=== PATIENT | female | born 1940 | race Caucasian/White ===

== ENCOUNTER 2023-11-07 21:28 | Inpatient (IN) | payer MEDICARE, OTHER, SELFPAY ==
[2023-11-07] VITALS (7 sets, daily range): BP systolic 129–177; BP diastolic 58–77; BMI 35.6
[2023-11-07 15:23] LABS: % Basophils 0.6 % (0-2); % Eosinophils 2.2 % (0-6); % Immature Granulocytes 0.3 % (0-0.5); % Lymphocytes 11.3 % (20.5-51.1); % Monocytes 6.3 % (1.7-9.3); % Neutrophils 79.3 % (42.2-75.2); Absolute Basophils 0.1 10^3/uL (0-0.2); Absolute Eosinophils 0.2 10^3/uL (0-0.7); Absolute Lymphocytes 1.1 10^3/uL (1.2-3.4); Absolute Monocytes 0.6 10^3/uL (0.1-0.6); Absolute Neutrophils 7.5 10^3/uL (1.4-6.5); Hematocrit 30.9 % (37.0-47.0); Hemoglobin 9.8 g/dL (12.0-16.0); Mean Corp Hgb Conc. 31.7 g/dL (33.0-37.0); Mean Corpuscular Hgb 30.7 pg (27.0-31.0); Mean Corpuscular Volume 96.9 fL (81.0-99.0); Nucleated Red Blood Cells % 0 %; Red Blood Cell Count 3.19 10^6/uL (4.20-5.40); Red Cell Dist. Width 14.7 % (11.5-14.5); White Blood Cell Count 9.5 10^3/uL (4.8-10.8)
[2023-11-07 15:40] LABS: ALT (SGPT) 18 U/L (0-35); AST (SGOT) 24 U/L (14-36); Albumin 3.8 g/dl (3.5-5.0); Alkaline Phosphatase 81 U/L (38-126); Blood Urea Nitrogen 39 mg/dl (7-17); Calcium 10.7 mg/dl (8.4-10.2); Carbon Dioxide 23 mmol/L (22-30); Chloride 107 mmol/L (98-107); Estimated Creatinine Clearance 41 ml/min; Glucose 141 mg/dl (70-99); Potassium 4.1 mmol/L (3.5-5.1); Sodium 141 mmol/L (135-145); eGFR 44.91
[2023-11-07 15:49] LABS: Total Bilirubin 0.8 mg/dl (0.2-1.3); Total Protein 6.5 g/dl (6.3-8.2)
[2023-11-07 16:04] LABS: Platelet Count 31 10^3/uL (130-400)
--- NOTE | 2023-11-07 19:33 | ED.GENMED ---
Addendum entered and electronically signed by Tracie Abebe MD 11/07/23 20:30:
I initially ordered heparin, however, I quickly canceled it after the patient's platelet count came back at 31. I talked to the patient and she reports she is a history of chronic thrombocytopenia.
Original Note:
History of Present Illness
General
Chief Complaint: Breathing Problem
Source: patient and family (Daughter)
Exam Limitations: none
Time Seen by Provider: 11/07/23 18:22
Nursing documentation reviewed up to this point in time: agreed with
Travel History
Have you had any contact with someone who has COVID-19?: No
Do you have any symptoms of coronavirus? Fever > 100 degrees, chills, cough, shortness of breath, sore throat, loss of taste or smell, muscle aches, or headache?: No
History of Present Illness
History of Present Illness:
The patient is a pleasant 83-year-old female who reports that she has been short of breath for several months and it has lately become severe with exertion. Patient reports she has a aortic valve replacement that was done over 10 years ago and is
concerned she may need a new aortic valve. She denies chest pain and palpitations. She denies increased leg pain and leg swelling. She is particularly concerned about how short of breath she has with simple activity. Patient's EKG on arrival
shows A-fib. Patient reports she is never had a history of this before
Past History
Past History
ED Past Medical History: HTN and Hypercholesterolemia
ED Past Surgical History: Cardiac (Aortic valve replacement)
Social History
Tobacco: Former smoker
Alcohol: None
Drug: None
Personal:
Living: alone
Employment: Retired
Family History
Family History: Other
Review of Systems
Review of Systems
Allergies reviewed?: Yes
All Other Systems: ROS reviewed and negative except as documented in HPI and ROS
Constitutional: Reports no symptoms
EENT: Reports no symptoms
Respiratory: Reports trouble breathing
Cardiac: Reports no symptoms
ABD/GI: Reports no symptoms
: Reports no symptoms
Musculoskeletal: Reports no symptoms
Skin: Reports no symptoms
Neurological: Reports no symptoms
Endocrine: Reports no symptoms
Hematologic/Lymphatic: Reports no symptoms
Psychiatric: Reports no symptoms
Phy Exam
Physical Exam
Physical Exam:
Physical Exam
General: no apparent distress, not acutely ill
Neck: supple. no meningeal signs. normal psoterior pharynx
Heart: s1/s2 regular rate and rhythm, no murmur. equal radial pulses.
Lungs: no acute respiratory distress. clear bilaterally
Abdomen: normal bowel sounds. not tender. no CVAT
Neuro: alert and oriented. no focal neurological deficits
Skin: no rash
Psychiatric: well kept. interactive and cooperative
Extremities: no edema. no calf tenderness. negative homans. good distal pulses
Scores
Heart Failure Risk
Heart Failure Risk Score: Not Applicable
Course
Orders/Labs/Results
Orders:
Orders
11/07/23 15:11
Electrocardiogram (*1) Urgent
Reason for Study: Chest Pain
EKG- Treatment ONCE
11/07/23 15:15
Complete Blood Count/With Diff Urgent
Comprehensive Metabolic Panel Urgent
11/07/23 19:52
Heparin 4,000 units IV NOW STA
Pharmacy Request to Place See Dose Instructions PO NOW STA
Discontinue all Active Warfarin orders?: Yes
Nursing to Place Non Medication Order As Directed
Physician Order: PTT 6 hours after initial start of Heparin infusion
11/07/23 20:00
Heparin 63240 Units/250 ml 25,000 units in 250 ml IV PER PROTOCOL
Weight to be used for heparin protocol in kilograms (kg):: 97.069
Protocol:: Cardiac Tx/Acute Coronary
PTT Goal Range to be used:: PTT 73 to 111 seconds
Order type:: Initial
INITIAL Infusion Dose (UNITS/KG/hr) & then follow protocol:: 12 units/kg/hr
Infusion Dose in UNITS/hr & then follow protocol (UNITS/hr):: 1,000
INFUSION RATE in mL/hr & then follow protocol (mL/hr):: 10
PTT less than or equal to 64 seconds:: Increase rate by 200 units/hr (+ 2 mL/hr)
PTT 64.1 to 72.9 seconds:: Increase rate by 100 units/hr (+ 1 mL/hr)
PTT 73 to 111 seconds:: Target Range. No change in rate.
PTT 111.1 to 130.9 seconds:: Decrease rate by 100 units/hr (- 1 mL/hr)
PTT 131 to 199.9 seconds:: HOLD for 1 hr. Then decrease rate by 200 units/hr (- 2 mL/hr)
PTT greater than or equal to 200 seconds:: HOLD for 2 hrs & Notify Provider. Then decrease by 200 units/hr (-
2 mL/hr)
Lab follow-up:: Each change, PTT q6h until 2 consecutive are therapeutic. Then PTT
daily.
Pharmacy Request to Place See Dose Instructions IV DIRECTED
11/07/23 20:04
NT-proBNP Urgent
PTT Urgent
Prothrombin Time Urgent
Troponin I Urgent
Abnormal Lab Results
11/07/23
15:15
RBC 3.19 L 10^6/uL
(4.20-5.40)
Hgb 9.8 L g/dL
(12.0-16.0)
Hct 30.9 L %
(37.0-47.0)
MCHC 31.7 L g/dL
(33.0-37.0)
RDW 14.7 H %
(11.5-14.5)
Plt Count 31 L 10^3/uL
(130-400)
Absolute Neuts (auto) 7.5 H 10^3/uL
(1.4-6.5)
Absolute Lymphs (auto) 1.1 L 10^3/uL
(1.2-3.4)
Neutrophils % 79.3 H %
(42.2-75.2)
Lymphocytes % 11.3 L %
(20.5-51.1)
BUN 39 H mg/dl
(7-17)
Creatinine 1.2 H mg/dL
(0.6-1.0)
Glucose 141 H mg/dl
(70-99)
Calcium 10.7 H mg/dl
(8.4-10.2)
11/07/23 15:15
11/07/23 15:15
Vital Signs
Initial and Last Documented VS:
Initial Vital Signs
Temp Pulse Resp BP Pulse Ox
98 F 95 16 167/70 98
11/07/23 15:03 11/07/23 15:03 11/07/23 15:03 11/07/23 15:03 11/07/23 15:03
Last Documented Vital Signs
Temp Pulse Resp BP Pulse Ox
98 F 97 23 167/73 95
11/07/23 15:03 11/07/23 20:01 11/07/23 20:01 11/07/23 20:01 11/07/23 20:01
MDM/Problems Addressed
Differential Diagnosis Includes:
A-fib with rapid ventricular rate, A-fib with CHF, pneumonia
MDM/Problems Addressed:
Patient presents with subacute shortness of breath and new onset A-fib
Chronic conditions affecting care: HTN
Acute Exacerbation and/or Progression of Chronic Illness: HTN
*Pulse Oximetry
Patient hypoxic: no
*EKG
Interpreted by ED Provider?: Yes
Interpretation: abnormal
Comparison EKG: no comparison EKG present
Rate: normal
Rhythm: a-fib
Bledsoe: normal axis
Interval: normal interval
QRS Pattern: normal QRS
Ischemia: non-specific ST changes
*Stripe Marker Interpretation
Rate: normal
Interpretation: abnormal
Rhythm: a-fib
*Critical Care Note
Total Time (30-74mins, 75-104mins- exclusive of procedures): Not Applicable
Data Reviewed
Source: patient and family
Patient Management
Discussion with other providers: Hospitalist
Escalation/DeEscalation of care consider admission/obs:
Given patient's shortness of breath on exertion, decision made to admit the patient for anticoagulation possible cardioversion. Awaiting proBNP.
ED Attending Note
-
Portions of this chart may have been created with voice recognition software.� Occasional wrong word or��sound alike� substitutions may have occurred due to the inherent limitations of voice recognition software.
Discharge Plan
Departure
Patient Disposition: Admit
Date of Disposition: 11/07/23
Time of Disposition: 19:31
Admit to: Telemetry
Presentation/result/management discussed w/ accepting MD/DO: Hospitalist
Patient with high blood pressure during this ER visit?: Yes
Condition: Fair
Covid-19: Not Applicable
Discharge Problem:
New onset a-fib, Acute dyspnea
Prescriptions:
No Action
multivitamin Tablet
1 tab PO DAILY
losartan 50 mg tablet
50 mg PO BID
carvedilol 25 mg tablet
25 mg PO BID
simvastatin 10 mg tablet
10 mg PO QPM
aspirin 81 mg Tablet,Delayed Release (Dr/Ec)
81 mg PO Q48H
hydralazine 50 mg tablet
50 mg PO BID
glucosamine-chondroitin [Osteo Bi-Flex] 250-200 mg Tablet
1 tab PO BID
Referrals:
Ira Amaya DO [Family Provider] -
Interventions
Interventions:
*Risk Screen - Suicide Last Done: 11/07/23 15:06
*Neglect/Abuse Screening Last Done: 11/07/23 15:06
*ED COVID-19 Vaccine History Last Done: 11/07/23 15:06
--- NOTE | 2023-11-07 19:53 | HPS.HSE ---
Addendum entered and electronically signed by Starr Garg MD 11/07/23 20:53:
I saw and examined the patient.
The DISH ROOM WORKER's note was reviewed and I agree with the note.
Comment:
Ms. Cyndie Kaplan is a 83 yo woman with hx AVR 2012, iron deficiency anemia who presents to the ER with progressive shortness of breath since Spring 2022. Patient was worried she needs a valve repair. Denies chest pain. Triage VS significant
for hypertension. On exam she is conversant, in no acute distress. CV: S1, S2, irregular rhythm, no murmurs; lungs clear, abdomen benign, 1+ b/l pitting edema. Labs with creatinine 1.2, Na 141, K+ 4.1, WBC 9.5, PLT 31. EKG with rate-controlled
afib in the .
Patient will be admitted for further work-up and treatment of afib and shortness of breath. Will obtain chest x-ray, TTE, TSH, cardiology consult. continue MAGNETIC LOCATER Coreg. Avoid AC given thrombocytopenia.
Regarding thrombocytopenia, patient states she has a history of this but no work-up. Unclear if this is lower than baseline. Hold MAGNETIC LOCATER aspirin given PLT < 50. Will F/U TSH, HCV testing. Heme consult.
Original Note:
Family Physician
-
Family Physician: Ira Amaya
Chief Complaint
-
Shortness of breath, dyspnea on exertion
History of Present Illness
83-year-old female complaining of shortness of breath with dyspnea on exertion since December 2022. She had initial AVR in 2012 at [facility]. She was due to have a 2D echo in June 2023 but put it off due to her grandchild being born
that day. She has had progressive shortness of breath with CORRAL and is now unable to walk approximately 7 feet at home without getting winded. She denies chest pain, palpitations, cough, abdominal pain, nausea, vomiting, diarrhea, black or bloody
stools, urinary symptoms. She reports a history of thrombocytopenia with platelets of 33-40 but unclear of any etiology. She takes an aspirin 81 mg every other day she states for cardiac protecting although has no history of cardiac disease or
stents. She also has past medical history of iron deficiency anemia which she takes iron tabs twice daily.
She was noted to be in new onset A-fib in the ER along with anemia and thrombocytopenic. She has past medical history of right-sided breast cancer, chronic thrombocytopenia, iron deficiency anemia, HTN, HLD, AVR 2012
Medical History
Past Medical History
Past Medical History: Reports Other
Additional Past Medical History:
right-sided breast cancer
chronic thrombocytopenia
iron deficiency anemia
HTN
HLD
AVR 2012
Obesity
Past Surgical History: Reports Other
Additional Past Surgical History:
Right-sided breast cancer
Bilateral knee replacement
Valve replacement
Social History
Tobacco: Non-smoker
Alcohol: None
Drug: None
Personal:
Living: Alone ([facility])
Employment: Retired
Family History
Family History: Not pertinent
Allergies / Home Medications
Allergies reflects when Allergies were last updated in [facility].
Home Medications with original date entered in [facility]
Allergy/Medication List:
Allergies
Allergy/AdvReac Type Severity Reaction Status Date / Time
nut - unspecified Allergy Nausea Verified 11/07/23 15:05
Home Medications
aspirin 81 mg tablet,delayed release 81 mg PO Q48H 11/07/23
carvedilol 25 mg tablet 25 mg PO BID 11/07/23
glucosamine-chondroitin 250 mg-200 mg tablet (Osteo Bi-Flex) 1 tab PO BID 11/07/23
hydralazine 50 mg tablet 50 mg PO BID 11/07/23
losartan 50 mg tablet 50 mg PO BID 11/07/23
multivitamin 1 tab PO DAILY 11/07/23
simvastatin 10 mg tablet 10 mg PO QPM 11/07/23
Review of Systems
-
History Source: Patient and Family (Daughter at bedside)
A 12 point ROS was completed and negative except as noted: Yes
Constitutional: Denies Fever or Chills
EENT: Denies Sore Throat or Runny Nose
Respiratory: Reports Trouble Breathing (CORRAL); Denies Cough or Hemoptysis
Cardiac: Denies Chest Pain, Diaphoresis, Palpitations or Syncope
Abdomen/GI: Denies Abdominal Pain, Nausea, Vomiting, Diarrhea, Constipated, Bloody Stools or Black Stools
: Denies Dysuria, Frequency, Flank Pain, Incontinence, Difficulty Voiding, Urgency or Bleeding
Musculoskeletal: Reports Edema (+1 bilateral ankles); Denies Joint Pain
Skin: Denies Itching or Rash
Neurological: Reports Weakness (Generalized); Denies Dizzy or Headache
Endocrine: Reports No Symptoms
Hematologic/Lymphatic: Reports No Symptoms
Psych: Reports Calm
Physical Exam
Vital Signs
Vital Signs
Temp Pulse Resp BP Pulse Ox
98 F 95 16 167/70 98
11/07/23 15:03 11/07/23 15:03 11/07/23 15:03 11/07/23 15:03 11/07/23 15:03
Physical Exam
General: Comfortable and Conversant; No Pain, Fever or Chills
HEENT: NormoCephalic, Anicteric, Moist mucous membranes, PERRLA, [place] Conjunctivae and No Ptosis
Respiratory: Clear; No Wheezes, Rales or Rhonchi
Cardiac: S1/S2, Irregular Rhythm (A-fib) and Peripheral Edema (+1 bilateral ankles); No Murmur, Rub, Gallop or JVD
Breast: Deferred by me
GI: Soft, Non Tender, Non Distended, Normal Bowel Sounds and No Hepatosplenomegaly
Rectal: Deferred by Provider
Genito-urinary: Deferred by me
Musculoskeletal: No Clubbing, No Cyanosis, Edema, Left Lower Extremity (+1 to ankles) and Edema, Right Lower Extremity (+1 to ankles); No Edema, Left Upper Extremity or Edema, Right Upper Extremity
Skin: Warm and Dry; No Rash or Jaundice
Neuro: AO x 3, No Motor Deficits, Nonfocal/grossly intact, Cranial Nerves Intact and No Sensory Deficits; No Slurred Speech, Facial Droop or Tremors
Psych: Calm
Laboratory Results
-
11/07/23 15:15
11/07/23 15:15
Laboratory Results
Total Bilirubin 0.8 mg/dl (0.2-1.3) 11/07/23 15:15
AST 24 U/L (14-36) 11/07/23 15:15
ALT 18 U/L (0-35) 11/07/23 15:15
Alkaline Phosphatase 81 U/L (38-126) 11/07/23 15:15
Impression/Plan
-
Impression/plan:
Admit to telemetry
#New onset A-fib
-Rate currently controlled 96 bpm
-Continue carvedilol 25 mg twice daily
-Consult [facility] cardiology
-Obtain records from [facility]
-Check 2D echo
- tsh with free t4 reflex
EKG: A-fib 96 bpm, QTc 429 MS
#AVR 2012
-Follows with [facility] at [facility] last appointment was June
#Anemia�normocytic
#Iron deficiency anemia
Hgb 9.8, MCV 96.9
-Continue oral iron 65 mg twice daily
#Acute on chronic thrombocytopenia-unclear etiology
PLT 31
-Hold aspirin 81 mg
-check hcv
-Consult hematology
? CKD
Creat 1.2 follow bmp
#Hypercalcemia�mild
Calcium 10.7> 10.9 corrected
#Mild hyperglycemia
BS 141 check HgbA1c
HTN-benign-
Continue carvedilol 25 mg twice daily, losartan 50 mg twice daily, , hydralazine 50 mg twice daily
#HLD
Continue simvastatin 10 mg every afternoon
Check lipid profile
#Right-sided breast cancer with lumpectomy
#Kyphosis
#Chronic ambulatory dysfunction
Uses walker at baseline
#Obesity due to excess calorie consumption�BMI 35.6 kg
Low-fat diet, weight loss recommended
Full code
[2023-11-07 20:22] LABS: APTT 30.4 Sec (23.4-35.0)
[2023-11-07 20:34] LABS: NT-proBNP 4890 pg/ml; Troponin I < 0.012 ng/ml
[2023-11-07 21:03] LABS: Iron 45 ug/dl (37-170)
[2023-11-07 21:12] LABS: Percent Saturation 16 % (20-50); Total Iron Binding Capacity 278 ug/dl (265-497)
[2023-11-07 22:10] LABS: Folate > 20.0 ng/ml (2.76-20); Vitamin B12 843 pg/ml (239-931)
[2023-11-08] VITALS (9 sets, daily range): BP systolic 122–156; BP diastolic 68–91; O2SAT 95; BMI 33.9
[2023-11-08] MEDS: LIPITOR 10 MG PO ×2 (00:43→18:22)
--- NOTE | 2023-11-08 02:32 | PTCARENOTE ---
Received patient from ER, AAOx4. Patient ambulated from stretcher to her bed with walker. No c/o pain at this time. A fib on tele monitor. Oriented to unit, call davis in reach, plan of care continues.
[2023-11-08] MEDS: TYLENOL 650 MG PO ×2 (04:15→21:56)
[2023-11-08 07:54] LABS: Glucose - Point of Care 103 mg/dl (70-99)
--- NOTE | 2023-11-08 08:28 | CON.ONC ---
Impression
Impression
New onset A-fib
AVR 2012
Normocytic anemia with history of iron deficiency anemia
Chronic thrombocytopenia of unclear etiology
Right-sided breast cancer s/p lumpectomy 2009 - [facility]
Obesity
Plan
Plan
Patient has anemia and thrombocytopenia and could have an underlying bone marrow disorder.
History of iron deficiency anemia is in the records but despite anemia, patient does not appear to be currently iron deficient based on iron studies.
Additional workup including a bone marrow aspirate and biopsy to rule out underlying bone marrow dysfunction is indicated.
Patient also requires a bone marrow biopsy for further evaluation of thrombocytopenia.
As inpatient bone marrow biopsy is or not typically done, I will set her up for follow-up with Dr. Marie or one of my other partners for further outpatient evaluation.
Will schedule outpatient follow-up.
Regarding dyspnea, this is likely related to new onset atrial fibrillation and patient is currently getting an echocardiogram and will be seen by cardiology.
Patient History
History of Present Illness
Hematology consult: Chronic thrombocytopenia from Dr. Starr Garg
CC: Shortness of breath, dyspnea on exertion
HPI: 83-year-old female presented to the ER with worsening chronic shortness of breath and dyspnea on exertion since December 2022. Patient has history of valvular heart disease and underwent aortic valve replacement and a follow-up echocardiogram was
scheduled but patient never had it done because it was scheduled on the day her grandchild was born. We are consulted to see her for thrombocytopenia. Reviewing our outpatient chart, she saw Dr. Shan Marie in 2013 for thrombocytopenia with
platelet count of 60,000. Currently platelet count runs around 30-40,000 without any clear-cut etiology. A bone marrow biopsy was being considered in 2013 but patient never scheduled follow-up. Patient denies bleeding. She does take low-dose
aspirin 81 mg every other day.
In the ER, she was found to be in new onset A-fib hematology is consulted for anemia and thrombocytopenia.
Past-Medical/Surgical History
PMH:
right-sided breast cancer, chronic thrombocytopenia, iron deficiency anemia, HTN, HLD, AVR 2012, Obesity
PSH:
s/p [facility]R [facility] �02/2013
s/p right lumpectomy �2009
s/p bilateral knee replacements
s/p eye surgery cataract
SH:
Tobacco: Non-smoker
Alcohol: None
Drug: None
Personal:
Living: Alone ([facility])
Employment: Retired
FH: The patient denies a family history of hematologic disorders or hematologic malignancies.
Patient Medication
Medication Instructions Recorded Confirmed Last Taken Type
aspirin 81 mg tablet,delayed 81 mg PO Q48H 11/07/23 11/07/23 11/07/23 History
release
carvedilol 25 mg tablet 25 mg PO BID 11/07/23 11/07/23 11/07/23 History
ferrous sulfate 65 mg PO BID 11/07/23 11/07/23 Unknown History
glucosamine-chondroitin 250 mg-200 1 tab PO BID 11/07/23 11/07/23 11/07/23 History
mg tablet (Osteo Bi-Flex)
hydralazine 50 mg tablet 50 mg PO BID 11/07/23 11/07/23 11/07/23 History
losartan 50 mg tablet 50 mg PO BID 11/07/23 11/07/23 11/07/23 History
multivitamin 1 tab PO DAILY 11/07/23 11/07/23 11/07/23 History
simvastatin 10 mg tablet 10 mg PO QPM 11/07/23 11/07/23 11/06/23 History
Active Medications
Generic Name Dose Route Start Last Admin
Trade Name Freq PRN Reason Stop Dose Admin
Atorvastatin Calcium 10 mg 11/08/23 18:00
Atorvastatin (Lipitor) 10 Mg Tablet PO 12/06/23 17:59
QPM CHRISTIANO
Carvedilol 25 mg 11/08/23 08:00
Carvedilol 25 Mg Tablet PO 12/06/23 07:59
BID CHRISTIANO
Dextrose 12.5 grams 11/07/23 22:21
Dextrose 50% (0.5 Grams/Ml) 50 Ml Syringe IV 12/05/23 22:20
[id number] PRN
hypoglycemia
Protocol
Ferrous Sulfate 325 mg 11/08/23 08:00
Ferrous Sulfate 325 Mg Tablet PO 12/06/23 07:59
BID CHRISTIANO
Glucagon 1 mg 11/07/23 22:21
Glucagon 1 Mg Vial IM 12/05/23 22:20
PRN PRN
hypoglycemia
Protocol
Hydralazine HCl 50 mg 11/08/23 08:00
Hydralazine 50 Mg Tablet PO 12/06/23 07:59
BID CHRISTIANO
Insulin Aspart 0 units 11/08/23 07:30
Insulin Aspart Low Resistance 300 Units/3 Ml Pen.Injctr SC 12/06/23 07:29
AC CHRISTIANO
Protocol
Losartan Potassium 50 mg 11/08/23 08:00
Losartan 50 Mg Tablet PO 12/06/23 07:59
BID CHRISTIANO
Multivitamins Therapeutic 1 tablet 11/08/23 08:00
Multivitamin Tablet PO 12/06/23 07:59
DAILY CHRISTIANO
Sodium Chloride 0 flush 11/07/23 23:00
Sodium Chloride 0.9% (Flush) Syringe IV 12/05/23 22:59
PER PROTOCOL CHRISTIANO
Physical Exam
-
General: No Apparent Distress, Comfortable and Morbidly Obese; Negative Respiratory Distress
Cardiology: Irregular Rate/Rhythm
Pulmonary: Clear
GI: Soft
Labs
Lab Results
WBC 9.5 10^3/uL (4.8-10.8) 11/07/23 15:15
RBC 3.19 10^6/uL (4.20-5.40) L 11/07/23 15:15
Hgb 9.8 g/dL (12.0-16.0) L 11/07/23 15:15
Hct 30.9 % (37.0-47.0) L 11/07/23 15:15
MCV 96.9 fL (81.0-99.0) 11/07/23 15:15
MCH 30.7 pg (27.0-31.0) 11/07/23 15:15
MCHC 31.7 g/dL (33.0-37.0) L 11/07/23 15:15
RDW 14.7 % (11.5-14.5) H 11/07/23 15:15
Plt Count 31 10^3/uL (130-400) L 11/07/23 15:15
MPV Not Reportable 11/07/23 15:15
Abs Immat Gran (auto) 0.0 10^3/uL (0-0.05) 11/07/23 15:15
Absolute Neuts (auto) 7.5 10^3/uL (1.4-6.5) H 11/07/23 15:15
Absolute Lymphs (auto) 1.1 10^3/uL (1.2-3.4) L 11/07/23 15:15
Absolute Monos (auto) 0.6 10^3/uL (0.1-0.6) 11/07/23 15:15
Absolute Eos (auto) 0.2 10^3/uL (0-0.7) 11/07/23 15:15
Absolute Basos (auto) 0.1 10^3/uL (0-0.2) 11/07/23 15:15
Immature Gran % 0.3 % (0-0.5) 11/07/23 15:15
Neutrophils % 79.3 % (42.2-75.2) H 11/07/23 15:15
Lymphocytes % 11.3 % (20.5-51.1) L 11/07/23 15:15
Monocytes % 6.3 % (1.7-9.3) 11/07/23 15:15
Eosinophils % 2.2 % (0-6) 11/07/23 15:15
Basophils % 0.6 % (0-2) 11/07/23 15:15
Creatinine 1.2 mg/dL (0.6-1.0) H 11/07/23 15:15
Vital Signs
Vital Signs
Temp Pulse Resp BP Pulse Ox
98.6 F 96 18 135/91 95
11/08/23 07:00 11/08/23 07:00 11/08/23 07:00 11/08/23 07:00 11/08/23 07:00
--- NOTE | 2023-11-08 08:51 | CON.CAR ---
Addendum entered and electronically signed by Von Soto MD 11/08/23 12:45:
I saw and examined the patient.
The RN APPEALS's note was reviewed and I agree with the note.
Comment: 83 [facility] with hx AVR 2013, hypertension, dyslipidemia, anemia, breast CA hx, thrombocytopenia who is here for evaluation of SOB present for months, but worsened since September. Overall, her shortness
does not have a have a clear etiology.
Will obtain
- TTE for eval of AVR
- AF will need to be rate controlled given the degree of her thrombocytopenia
- HF does not seem to be likely as her CXR is clear and weight from history is stable
- Pending TTE may trial diuretics to see if this improves SOB
we will cont to follow
Original Note:
Consultation
Consultation Request
Date/Time Consultation Requested: 11/07/232031
Date/Time Consultation Performed: 11/08/22 0845
Requesting Provider: Tamar Castro
Performing Provider: Dana MAYES for Dr. Soto
Reason for Consultation: SOB
Medical History
-
Chief Complaint: SOB
History of Present Illness:
83 [facility] with hx AVR 2013, hypertension, dyslipidemia, anemia, breast CA hx, thrombocytopenia who is here for evaluation of SOB present for months, but worsened since September. Her children urged her to be
seen. She is seen to have new diagnosis AFIB. Rate is controlled. She denies any clinical bleeding. Denies edema or known weight gain. Always sits up in chair at night due to kyphosis. Breathing only bad with exertion, fine at rest.
Past Medical History
Past Medical History: Cancer, HTN, Hypercholesterolemia and Other (as above)
Social History
Tobacco: Former Smoker
Personal:
Living: Other (independent living facility)
Family History
Family History: Reviewed & Not Pertinent
Allergies / Home Medications
Allergy/AdvReac Type Severity Reaction Status Date / Time
nut - unspecified Allergy Nausea Verified 11/07/23 15:05
Medication Instructions Recorded Confirmed Type
aspirin 81 mg tablet,delayed 81 mg PO Q48H 11/07/23 11/07/23 History
release
carvedilol 25 mg tablet 25 mg PO BID 11/07/23 11/07/23 History
ferrous sulfate 65 mg PO BID 11/07/23 11/07/23 History
glucosamine-chondroitin 250 mg-200 1 tab PO BID 11/07/23 11/07/23 History
mg tablet (Osteo Bi-Flex)
hydralazine 50 mg tablet 50 mg PO BID 11/07/23 11/07/23 History
losartan 50 mg tablet 50 mg PO BID 11/07/23 11/07/23 History
multivitamin 1 tab PO DAILY 11/07/23 11/07/23 History
simvastatin 10 mg tablet 10 mg PO QPM 11/07/23 11/07/23 History
Review of Systems
-
History Source: Patient
All other systems: Negative unless noted
Respiratory: Trouble Breathing
Physical Exam
Vital Signs
Temp Pulse Resp BP Pulse Ox
98.6 F 96 18 135/91 95
11/08/23 07:00 11/08/23 07:00 11/08/23 07:00 11/08/23 07:00 11/08/23 07:00
Lab Results
Troponin I < 0.012 ng/ml 11/07/23 20:04
Fir-Q-Ztykhxswlea Pept 4890 pg/ml 11/07/23 20:04
Physical Exam
General: Well Developed and No Apparent Distress
HEENT: Normocephalic and Anicteric
Respiratory: Clear and Non Labored Respirations
Cardiac: Irregular Rhythm and Murmur (II/ systolic)
Skin: Warm and Dry
Neuro: AO x 3
Psych: Calm
Impression / Plan
-
SOB:
-CXR limited, not obviously volume overloaded to assessment. Check echo.
-AFIB is new, but rate-controlled
-anemia is noted, unknown baseline
AFIB, new diagnosis- type and onset unknown
-rate-controlled- continue Coreg
-[id number] score is at least 4 for HTN, age, female. However, platelets are 31, and anticoagulation contraindicated at this time.
Thrombocytopenia:
-severe
-heme is consulted
Hx Bio AVR 2013:
-on ASA as OP- held currently
-echo pending
HTN:
-stable
-continue medical therapy
Anemia:
-baseline unknown
-on iron
-follow
Data Reviewed
-
EKG: Tracing Personally Visualized and interpreted (AFIB)
Radiology: Report Reviewed by me (CXR: Limited by patient rotation and slightly diminished degree of inspiration. As far as visualized, no evidence of pneumonia or congestive heart failure.)
Medical Tests (Nuc Med, Echo etc): Other (echo ordered)
Labs: Labs Reviewed by me
Old Records: Requested
[2023-11-08 09:03] LABS: % Basophils 0.6 % (0-2); % Eosinophils 2.8 % (0-6); % Immature Granulocytes 0.4 % (0-0.5); % Lymphocytes 10.1 % (20.5-51.1); % Monocytes 7.2 % (1.7-9.3); % Neutrophils 78.9 % (42.2-75.2); Absolute Basophils 0.1 10^3/uL (0-0.2); Absolute Eosinophils 0.2 10^3/uL (0-0.7); Absolute Lymphocytes 0.9 10^3/uL (1.2-3.4); Absolute Monocytes 0.6 10^3/uL (0.1-0.6); Absolute Neutrophils 6.7 10^3/uL (1.4-6.5); Hematocrit 27.8 % (37.0-47.0); Hemoglobin 8.8 g/dL (12.0-16.0); Mean Corp Hgb Conc. 31.7 g/dL (33.0-37.0); Mean Corpuscular Hgb 31.1 pg (27.0-31.0); Mean Corpuscular Volume 98.2 fL (81.0-99.0); Nucleated Red Blood Cells % 0 %; Red Blood Cell Count 2.83 10^6/uL (4.20-5.40); Red Cell Dist. Width 14.7 % (11.5-14.5); White Blood Cell Count 8.4 10^3/uL (4.8-10.8)
[2023-11-08 09:45] LABS: Blood Urea Nitrogen 31 mg/dl (7-17); Calcium 9.5 mg/dl (8.4-10.2); Carbon Dioxide 22 mmol/L (22-30); Chloride 113 mmol/L (98-107); Estimated Creatinine Clearance 45 ml/min; Glucose 93 mg/dl (70-99); HDL Cholesterol 43 mg/dl; LDL Cholesterol, Calculated 37 mg/dl; Potassium 3.9 mmol/L (3.5-5.1); Sodium 140 mmol/L (135-145); Total Cholesterol 96 mg/dl (50-199); Triglyceride 82 mg/dl (10-149); Very Low Density Lipoprotein 16 mg/dl (0-30); eGFR 49.86
[2023-11-08 09:53] LABS: Platelet Count 29 10^3/uL (130-400)
[2023-11-08 10:00] LABS: TSH Reflex To Free T4 0.04 uIU/ml (0.47-4.68)
[2023-11-08] MEDS: FEOSOL 325 MG PO ×2 (10:09→20:07)
[2023-11-08] MEDS: THERAGRAN 1 TABLET PO (10:09)
[2023-11-08] MEDS: COZAAR 50 MG PO ×2 (10:09→21:24)
--- NOTE | 2023-11-08 10:12 | W.PN.HOSP.TC ---
Addendum entered and electronically signed by Pamela Moore MD 11/08/23 11:04:
d/w Endo Dr Carty. Ok to start methimazole despite low platelet count. Agree with methimazole 5 mg daily.
Original Note:
Today's Communication/Plan
-
see A/P
Assessment / Plan
Assessment / Plan
83 yo woman with hx AVR 2012, iron deficiency anemia, chronic thrombocytopenia, HTN, HLD, who presented to the ER with progressive shortness of breath since Spring 2022.�
She had initial AVR in 2012 at [facility].�Patient was worried she needs a valve repair. Denies chest pain.�
She also reported history of thrombocytopenia with platelets of 33 - 40, unclear etiology.� She takes an aspirin 81 mg every other day.
A/P:
# New onset rate controlled A fib
Continue carvedilol 25 mg twice daily
Consult [facility]
Obtain records from [facility]
Follow 2D echo report
TSH 0.04, follow reflex FT4
# Hyperthyroidism vs subclinical hyperthyroidism , possibly contributing to A fib
TSH 0.04, follow reflex FT4
Would not start methimazole without Endo CS given methimazole can cause thrombocytopenia and pt already with low platelet.
Endo CS
# AVR 2012
Follows with CCP at [place] last appointment was June
# Acute on chronic thrombocytopenia, unclear etiology
Platelet 29 - 30
Hold aspirin 81 mg
Follow HCV testing
Consult hematology
# Anemia�normocytic
# Iron deficiency anemia
Continue oral iron 65 mg twice daily
# HTN
Continue carvedilol 25 mg twice daily, losartan 50 mg twice daily, hydralazine 50 mg twice daily, all with holding parameter
# HLD
Continue statin
LDL 37
# Right-sided breast cancer with lumpectomy
# Kyphosis
# Chronic ambulatory dysfunction
Uses walker at baseline
# Obesity due to excess calorie consumption� BMI 35.6 kg
Low-fat diet, weight loss recommended
Full code
DVT ppx: SCD, Avoid AC given thrombocytopenia.�
Anticipated Discharge: 24 - 48 hours
Subjective/Interval History
-
Date of Service: November 08, 2023
Objective Data
-
Labs:
Laboratory Results
11/08/23
07:38
WBC 8.4
Hgb 8.8 L
Hct 27.8 L
Plt Count 29 L*
Sodium 140
Potassium 3.9
Chloride 113 H
Carbon Dioxide 22
BUN 31 H
Creatinine 1.1 H
Glucose 93
Calcium 9.5
Vital Signs:
Vital Signs
Temp Pulse Resp BP Pulse Ox
37.0 C 96 18 135/91 95
11/08/23 07:00 11/08/23 07:00 11/08/23 07:00 11/08/23 07:00 11/08/23 07:00
Review of Systems
-
All other systems: Reviewed and negative
Physical Exam
-
General: Well Developed, Well Nourished, No Apparent Distress, Comfortable and Conversant; Negative Respiratory Distress
HEENT: Normocephalic, Atraumatic, Nose Appears Normal and Ears Appear Normal; Negative Oxygen
Respiratory: Clear to Auscultation and Non Labored Respirations; Negative Accessory Resp Muscle Use
Cardiac: S1/S2 and Irregular Rhythm
GI: Soft, Nontender, Nondistended and Normal Bowel Sounds
Skin: Warm and Dry
Neuro: Awake, Alert, Oriented and AO x 3
Psych: Calm and Intact Judgement/Insight
Data Reviewed
-
Labs: Labs Reviewed by me
[2023-11-08] MEDS: COREG 25 MG PO ×2 (10:16→20:07)
[2023-11-08] MEDS: APRESOLINE 50 MG PO ×2 (10:26→21:24)
[2023-11-08 10:47] LABS: Free T4 1.82 ng/dl (0.78-2.19)
[2023-11-08 11:04] LABS: Glucose - Point of Care 128 mg/dl (70-99)
[2023-11-08 12:13] LABS: Glycohemoglobin (HgbA1c) 5.4 % (4.0-5.6)
[2023-11-08] MEDS: TAPAZOLE 5 MG PO (13:07)
--- NOTE | 2023-11-08 17:20 | W.PN.UPDATE ---
Update Note
Progress Note Update
Our service ordered lasix earlier today, but patient declined. I explained reasoning for it, echo, and our recommendation for it and that it would likely help with shortness of breath. She told me she was getting 'testy' and that she still declines.
She said she will take it in the AM, as she doesn't want to urinate all night since she didn't sleep last night.
--- NOTE | 2023-11-08 17:21 | CM ---
Alert awake oriented patient who lives alone at independent living at [facility].She has no steps to enter and an elevator to cafe.She is independent in driving and in all activities of daily living.Offered VN she declined.
[facility]
Never had VN/SNF
Pharmacy [facility]
PCP Dr Amaya
PLAN Home declined VN
[2023-11-08 17:26] LABS: Glucose - Point of Care 99 mg/dl (70-99)
[2023-11-08 21:25] LABS: Glucose - Point of Care 98 mg/dl (70-99)
[2023-11-08 21:55] LABS: Hepatitis C Antibody Negative (Negative)
[2023-11-09] VITALS (7 sets, daily range): BP systolic 109–135; BP diastolic 55–77; BMI 32.9
[2023-11-09 06:54] LABS: % Basophils 0.5 % (0-2); % Eosinophils 2.8 % (0-6); % Immature Granulocytes 0.4 % (0-0.5); % Lymphocytes 16.1 % (20.5-51.1); % Neutrophils 72.2 % (42.2-75.2); Absolute Eosinophils 0.2 10^3/uL (0-0.7); Absolute Lymphocytes 1.3 10^3/uL (1.2-3.4); Absolute Monocytes 0.7 10^3/uL (0.1-0.6); Hematocrit 27.4 % (37.0-47.0); Hemoglobin 8.9 g/dL (12.0-16.0); Mean Corp Hgb Conc. 32.5 g/dL (33.0-37.0); Mean Corpuscular Hgb 31.4 pg (27.0-31.0); Mean Corpuscular Volume 96.8 fL (81.0-99.0); Nucleated Red Blood Cells % 0 %; Platelet Count 30 10^3/uL (130-400); Red Blood Cell Count 2.83 10^6/uL (4.20-5.40); Red Cell Dist. Width 14.9 % (11.5-14.5); White Blood Cell Count 8.2 10^3/uL (4.8-10.8)
[2023-11-09 07:17] LABS: Blood Urea Nitrogen 38 mg/dl (7-17); Calcium 9.3 mg/dl (8.4-10.2); Carbon Dioxide 22 mmol/L (22-30); Chloride 108 mmol/L (98-107); Estimated Creatinine Clearance 38 ml/min; Glucose 108 mg/dl (70-99); Potassium 3.9 mmol/L (3.5-5.1); Sodium 141 mmol/L (135-145)
[2023-11-09 07:46] LABS: Glucose - Point of Care 98 mg/dl (70-99)
[2023-11-09] MEDS: COREG 25 MG PO ×2 (09:16→20:14)
[2023-11-09] MEDS: TAPAZOLE 5 MG PO (09:16)
[2023-11-09] MEDS: THERAGRAN 1 TABLET PO (09:17)
[2023-11-09] MEDS: FEOSOL 325 MG PO ×2 (09:17→20:14)
[2023-11-09] MEDS: COZAAR 50 MG PO ×2 (09:17→20:13)
[2023-11-09] MEDS: APRESOLINE 50 MG PO ×2 (09:17→20:13)
[2023-11-09] MEDS: LASIX 40 MG IV (09:18)
--- NOTE | 2023-11-09 09:44 | W.PN.CD ---
Today's Communication / Plan
-
continue diuresis with close monitoring of labs and bp
Impression / Plan
-
HFpEF:
-acute on chronic
-echo and exam c/w vol ol
-feeling better with diuresis
-will continue today
-AFIB is new, but rate-controlled
-anemia is noted, unknown baseline
AFIB, new diagnosis- type and onset unknown
-rate-controlled- continue Coreg
-[id number] score is at least 4 for HTN, age, female. However, platelets are 31, and anticoagulation contraindicated at this time.
Thrombocytopenia:
-severe
-heme is consulted
Hx Bio AVR 2013:
-on ASA as OP- held currently for plt #
-echo with normal function
HTN:
-stable
-continue medical therapy
Anemia:
-baseline unknown
-on iron
-follow
Subjective:
-she is feeling much better with diuresis, she is urinating a lot to lasix dose.
Data:
TTE 11/08/23 CONCLUSIONS
�Normal left ventricular size, wall thickness and systolic function.
�No regional wall motion abnormalities are seen.
�LV ejection fraction is 55-60% by volumetric assessment.
�Dilated RV with normal systolic function.
�Heavy mitral annular calcification with mild mitral stenosis and moderate
�mitral regurgitation.
�S/p bioprosthetic AVR which is well seated with no significant stenosis or
�regurgitation.
�Moderate tricuspid regurgitation.
�Estimated pulmonary artery pressure of 53 mmHg. Assuming a right atrial
�pressure of 15 mmHg.
The IVC is dilated and does not collapse.
Physical Exam
Vital Signs/Labs
Vital Signs
Temp Pulse Resp BP Pulse Ox
97.9 F 82 20 133/70 96
11/09/23 08:04 11/09/23 09:16 11/09/23 08:04 11/09/23 09:16 11/09/23 08:04
11/08/23 11/09/23 11/10/23
06:59 06:59 06:59
Actual Weight 95.283 kg 92.306 kg
11/09/23 06:27
11/09/23 06:27
PT 15.0 Sec (11.4-14.6) H 11/07/23 20:04
INR 1.20 11/07/23 20:04
APTT 30.4 Sec (23.4-35.0) 11/07/23 20:04
Triglycerides 82 mg/dl (10-149) 11/08/23 07:38
LDL Cholesterol, Calc 37 mg/dl 11/08/23 07:38
VLDL Cholesterol, Calc 16 mg/dl (0-30) 11/08/23 07:38
HDL Cholesterol 43 mg/dl 11/08/23 07:38
Free T4 1.82 ng/dl (0.78-2.19) 11/08/23 07:38
11/07/23
20:04
Wjj-A-Tdehonfeavn Pept 4890
LAB Results
11/07/23
20:04
Troponin I < 0.012
Physical Exam
Constitutional: No acute distress
Cardiovascular: Pedal edema is absent, Systolic murmur absent, Diastolic murmur absent, Rhythm/rate is irregular and JVD present ([id number])
Respiratory: Respiratory effort normal, Lungs clear to auscul., Wheeze Absent and Crackles Absent
Neuro/Psych: AO x 3
Data Reviewed
-
Date of Service: November 09, 2023
EKG: Other (tele rate controlled fib)
--- NOTE | 2023-11-09 11:15 | W.PN.HOSP.TC ---
Today's Communication/Plan
-
Continue with IV diuresis
Monitor creatinine
Monitor CBC
Assessment / Plan
Assessment / Plan
83 yo woman with hx AVR 2012, iron deficiency anemia, chronic thrombocytopenia, HTN, HLD, who presented to the ER with progressive shortness of breath since Spring 2022.�
She had initial AVR in 2012 at [facility].�Patient was worried she needs a valve repair. Denies chest pain.�
She also reported history of thrombocytopenia with platelets of 33 - 40, unclear etiology.� She takes an aspirin 81 mg every other day.
A/P:
# New onset rate controlled A fib type and onset unknown
Continue carvedilol 25 mg twice daily
Consult [facility]
Obtain records from [facility] [place]
Not a candidate for anticoagulation in the setting of chronic thrombocytopenia
# Acute on chronic HFpEF
Continue with IV Lasix
Monitor I's and O's and weights
Monitor creatinine
# Elevated creatinine�unclear baseline
Monitor with diuresis
# Hyperthyroidism vs subclinical hyperthyroidism , possibly contributing to A fib
TSH 0.04, follow reflex FT4 at 1.82
Started on methimazole 5mg daily.
# AVR 2012
Follows with CCP at [place] last appointment was June
# Acute versus chronic versus acute on chronic thrombocytopenia, unclear etiology
Platelet 29 - 30
Hold aspirin 81 mg
Will need outpatient bone marrow biopsy
Hematology recs.
# Anemia�normocytic
# Iron deficiency anemia
Continue oral iron 65 mg twice daily
# HTN primary
Continue carvedilol 25 mg twice daily, losartan 50 mg twice daily, hydralazine 50 mg twice daily, all with holding parameter
Blood pressure 133/70 controlled
# HLD
Continue statin
LDL 37
# Right-sided breast cancer with lumpectomy
# Kyphosis
# Chronic ambulatory dysfunction
Uses walker at baseline
# Obesity due to excess calorie consumption� BMI 35.6 kg
Low-fat diet, weight loss recommended
Full code
DVT ppx: SCD, Avoid AC given thrombocytopenia.�
Anticipated Discharge: > 48 hours
Subjective/Interval History
-
Date of Service: November 09, 2023
states improvement in breathing
denies palpations
Objective Data
-
Labs:
Laboratory Results
11/09/23
06:27
WBC 8.2
Hgb 8.9 L
Hct 27.4 L
Plt Count 30 L
Sodium 141
Potassium 3.9
Chloride 108 H
Carbon Dioxide 22
BUN 38 H
Creatinine 1.3 H
Glucose 108 H
Calcium 9.3
Vital Signs:
Vital Signs
Temp Pulse Resp BP Pulse Ox
97.9 F 82 20 133/70 96
11/09/23 08:04 11/09/23 09:16 11/09/23 08:04 11/09/23 09:16 11/09/23 09:20
I&O
11/08/23 11/09/23 11/10/23
06:59 06:59 06:59
Intake Total 600 / 600
Balance 600 / 600
Physical Exam
-
General: Well Developed, Well Nourished, No Apparent Distress, Comfortable and Conversant; Negative Respiratory Distress
HEENT: Normocephalic, Atraumatic, Nose Appears Normal and Ears Appear Normal; Negative Oxygen
Respiratory: Clear to Auscultation and Non Labored Respirations; Negative Accessory Resp Muscle Use
Cardiac: S1/S2 and Irregular Rhythm
GI: Soft, Nontender, Nondistended and Normal Bowel Sounds
Skin: Warm and Dry
Neuro: Awake, Alert, Oriented and AO x 3
Psych: Calm and Intact Judgement/Insight
Data Reviewed
-
Total Time Spent with Patient (in minutes): 55
[2023-11-09 11:26] LABS: Glucose - Point of Care 107 mg/dl (70-99)
--- NOTE | 2023-11-09 13:06 | W.PN.UPDATE ---
Update Note
Progress Note Update
PLT 30. Patient refuses outpatient bone marrow biopsy. She appears to be a little forgetful. She is agreeable to office follow up with [place]. This has been arranged with Dr. Sampson on 01/02/24 in the [place] office.
[2023-11-09] MEDS: TYLENOL 650 MG PO ×2 (13:26→22:21)
[2023-11-09 16:38] LABS: Glucose - Point of Care 118 mg/dl (70-99)
--- NOTE | 2023-11-09 16:55 | CM ---
Spoke with patient in room
She said that her son can drive her [place] at [place].
Offered VN she declined need.
IMM given all questions answered IMM signed on chart.
PLAN Home no needs
[2023-11-09] MEDS: LIPITOR 10 MG PO (18:25)
[2023-11-09 21:53] LABS: Glucose - Point of Care 102 mg/dl (70-99)
[2023-11-10 03:40] VITALS: BP 125/68
[2023-11-10 06:00] VITALS: BMI 33.0
[2023-11-10 07:00] VITALS: BP 136/74
[2023-11-10 08:33] LABS: Glucose - Point of Care 110 mg/dl (70-99)
[2023-11-10 08:40] LABS: % Basophils 0.8 % (0-2); % Immature Granulocytes 0.5 % (0-0.5); % Lymphocytes 11.5 % (20.5-51.1); % Monocytes 8.7 % (1.7-9.3); % Neutrophils 74.5 % (42.2-75.2); Absolute Basophils 0.1 10^3/uL (0-0.2); Absolute Eosinophils 0.3 10^3/uL (0-0.7); Absolute Lymphocytes 0.9 10^3/uL (1.2-3.4); Absolute Monocytes 0.7 10^3/uL (0.1-0.6); Absolute Neutrophils 5.6 10^3/uL (1.4-6.5); Mean Corp Hgb Conc. 32.1 g/dL (33.0-37.0); Mean Corpuscular Hgb 31.4 pg (27.0-31.0); Mean Corpuscular Volume 97.6 fL (81.0-99.0); Nucleated Red Blood Cells % 0 %; Platelet Count 31 10^3/uL (130-400); Red Blood Cell Count 2.87 10^6/uL (4.20-5.40); White Blood Cell Count 7.6 10^3/uL (4.8-10.8)
[2023-11-10] MEDS: FEOSOL 325 MG PO (08:42)
[2023-11-10] MEDS: COREG 25 MG PO (08:42)
[2023-11-10] MEDS: COZAAR 50 MG PO (08:42)
[2023-11-10] MEDS: APRESOLINE 50 MG PO (08:42)
[2023-11-10] MEDS: TAPAZOLE 5 MG PO (08:42)
[2023-11-10] MEDS: THERAGRAN 1 TABLET PO (08:42)
[2023-11-10] MEDS: LASIX IV (08:45)
[2023-11-10 08:59] LABS: Blood Urea Nitrogen 45 mg/dl (7-17); Calcium 9.5 mg/dl (8.4-10.2); Carbon Dioxide 26 mmol/L (22-30); Chloride 106 mmol/L (98-107); Estimated Creatinine Clearance 35 ml/min; Glucose 106 mg/dl (70-99); Potassium 3.9 mmol/L (3.5-5.1); Sodium 141 mmol/L (135-145); eGFR 37.33
[2023-11-10 11:00] VITALS: BP 116/69
--- NOTE | 2023-11-10 11:50 | W.PN.HOSP.TC ---
Today's Communication/Plan
-
cards recs
OP cards f/u
OP Onc for thrombocytopenia/BM biopsy
Assessment / Plan
Assessment / Plan
83 yo woman with hx AVR 2012, iron deficiency anemia, chronic thrombocytopenia, HTN, HLD, who presented to the ER with progressive shortness of breath since Spring 2022.�
She had initial AVR in 2012 at [facility].�Patient was worried she needs a valve repair. Denies chest pain.�
She also reported history of thrombocytopenia with platelets of 33 - 40, unclear etiology.� She takes an aspirin 81 mg every other day.
A/P:
# New onset rate controlled A fib type and onset unknown
Continue carvedilol 25 mg twice daily
Consult [facility]ology
Obtain records from [facility]-never came through.
Not a candidate for anticoagulation in the setting of chronic thrombocytopenia
# Acute on chronic HFpEF
Continue with IV Lasix-REFUSING IT AND WANTS TO GO HOME ON ORAL LASIX.
Monitor I's and O's and weights
Monitor creatinine
cards recs.
# Elevated creatinine�unclear baseline
Monitor with diuresis
# Hyperthyroidism vs subclinical hyperthyroidism , possibly contributing to A fib
TSH 0.04, follow reflex FT4 at 1.82
Started on methimazole 5mg daily.
# AVR 2012
Follows with [facility] at [place] last appointment was June
# Acute versus chronic versus acute on chronic thrombocytopenia, unclear etiology
Platelet 29 - 30
Hold aspirin 81 mg
Will need outpatient bone marrow biopsy
Hematology recs.
# Anemia�normocytic
# Iron deficiency anemia
Continue oral iron 65 mg twice daily
# HTN primary
Continue carvedilol 25 mg twice daily, losartan 50 mg twice daily, hydralazine 50 mg twice daily, all with holding parameter
Blood pressure 116/69 controlled
# HLD
Continue statin
LDL 37
# Right-sided breast cancer with lumpectomy
# Kyphosis
# Chronic ambulatory dysfunction
Uses walker at baseline
# Obesity due to excess calorie consumption� BMI 35.6 kg
Low-fat diet, weight loss recommended
Full code
DVT ppx: SCD, Avoid AC given thrombocytopenia.�
Anticipated Discharge: Today
Subjective/Interval History
-
Date of Service: November 10, 2023
Refusing further medical care/IV lasix
wants to go home
states feeling better.
denies chest pain or sob.
Objective Data
-
Labs:
Laboratory Results
11/10/23
08:07
WBC 7.6
Hgb 9.0 L
Hct 28.0 L
Plt Count 31 L
Sodium 141
Potassium 3.9
Chloride 106
Carbon Dioxide 26
BUN 45 H
Creatinine 1.4 H
Glucose 106 H
Calcium 9.5
Vital Signs:
Vital Signs
Temp Pulse Resp BP Pulse Ox
98 F 91 18 116/69 94
11/10/23 11:00 11/10/23 11:00 11/10/23 11:00 11/10/23 11:00 11/10/23 11:00
I&O
11/09/23 11/10/23 11/11/23
06:59 06:59 06:59
Intake Total 600 / 600 840 / 840
Balance 600 / 600 840 / 840
Physical Exam
-
General: Well Developed, Well Nourished, No Apparent Distress, Comfortable, Conversant and Obese; Negative Respiratory Distress
HEENT: Normocephalic, Atraumatic, Nose Appears Normal and Ears Appear Normal; Negative Oxygen
Respiratory: Clear to Auscultation and Non Labored Respirations; Negative Accessory Resp Muscle Use
Cardiac: S1/S2
GI: Soft, Nontender, Nondistended and Normal Bowel Sounds
Skin: Warm and Dry
Neuro: Awake, Alert, Oriented and AO x 3
Psych: Calm and Intact Judgement/Insight
[2023-11-10 12:18] LABS: Glucose - Point of Care 97 mg/dl (70-99)
[2023-11-10] MEDS: TYLENOL 650 MG PO (12:20)
--- NOTE | 2023-11-10 14:23 | W.PN.CD ---
Today's Communication / Plan
-
ok to d/c home with lasix 40mg po daily
continue coreg
f/u with CCP in the next 1-2 weeks.
Impression / Plan
-
HFpEF:
-acute on chronic
-echo and exam c/w vol ol
-feeling better with diuresis
-refused iv lasix, agreeable to po lasix at home
-D/c on 40mg po lasix, follow up with CCP in the next 1-2 weeks.
-AFIB is new, but rate-controlled
-anemia is noted, unknown baseline
AFIB, new diagnosis- type and onset unknown
-rate-controlled- continue Coreg
-[id number] score is at least 4 for HTN, age, female. However, platelets are 31, and anticoagulation contraindicated at this time.
Thrombocytopenia:
-severe
-BM bx planned for outpatient
Hx Bio AVR 2012:
-on ASA as OP- held currently for plt #
-echo with normal function
HTN:
-stable
-continue medical therapy
Anemia:
-baseline unknown
-on iron
-follow
Subjective:
-she is feeling much better with diuresis, she is urinating a lot to lasix dose.
Data:
TTE 11/08/23 CONCLUSIONS
�Normal left ventricular size, wall thickness and systolic function.
�No regional wall motion abnormalities are seen.
�LV ejection fraction is 55-60% by volumetric assessment.
�Dilated RV with normal systolic function.
�Heavy mitral annular calcification with mild mitral stenosis and moderate
�mitral regurgitation.
�S/p bioprosthetic AVR which is well seated with no significant stenosis or
�regurgitation.
�Moderate tricuspid regurgitation.
�Estimated pulmonary artery pressure of 53 mmHg. Assuming a right atrial
�pressure of 15 mmHg.
The IVC is dilated and does not collapse.
Physical Exam
Vital Signs/Labs
Vital Signs
Temp Pulse Resp BP Pulse Ox
98 F 91 18 116/69 94
11/10/23 11:00 11/10/23 11:00 11/10/23 11:00 11/10/23 11:00 11/10/23 11:00
11/09/23 11/10/23 11/11/23
06:59 06:59 06:59
Actual Weight 92.306 kg 92.646 kg
11/10/23 08:07
11/10/23 08:07
PT 15.0 Sec (11.4-14.6) H 11/07/23 20:04
INR 1.20 11/07/23 20:04
APTT 30.4 Sec (23.4-35.0) 11/07/23 20:04
Triglycerides 82 mg/dl (10-149) 11/08/23 07:38
LDL Cholesterol, Calc 37 mg/dl 11/08/23 07:38
VLDL Cholesterol, Calc 16 mg/dl (0-30) 11/08/23 07:38
HDL Cholesterol 43 mg/dl 11/08/23 07:38
Free T4 1.82 ng/dl (0.78-2.19) 11/08/23 07:38
11/07/23
20:04
Uzw-T-Cswxmrpznko Pept 4890
LAB Results
11/07/23
20:04
Troponin I < 0.012
Physical Exam
Constitutional: No acute distress
Cardiovascular: Pedal edema is absent, JVD pressure is normal, Systolic murmur absent, Diastolic murmur absent and Rhythm/rate is irregular
Respiratory: Respiratory effort normal, Lungs clear to auscul., Wheeze Absent and Crackles Absent
Neuro/Psych: AO x 3
Data Reviewed
-
Date of Service: November 10, 2023
EKG: Other (tele rate controlled fib)
--- NOTE | 2023-11-10 14:37 | W.DCSUMMARY ---
Discharge Summary
Discharge Data
Date of Admission: 11/07/23
Date of Discharge: 11/10/23
-
Pending Results: No
Hospital Course
83-year-old female past medical history of aortic valve placement, deficient anemia, chronic thrombocytopenia, hypertension, hyperlipidemia is presenting with shortness of breath. Patient is shortness of breath has been ongoing for the prolonged
period of time. Patient upon admission was found to be in new onset of atrial fibrillation. Patient was candidate for anticoagulation due to severe thrombocytopenia. Patient was also found to have elevated heart rate due to rapid ventricular
response. TSH was found to be low as a result ladle cleaner was consulted and patient was started on methimazole 5 mg daily. In regards for severe thrombocytopenia with no baseline lab oncology was consulted' recommend outpatient evaluation and
bone marrow biopsy. Patient was started on IV Lasix with improvement in shortness of breath. Patient was refusing further medical management and care and wanted to go home on oral Lasix. Patient will be going home on 40 mg of p.o. Lasix per
discussion with cardiology. Patient was recommended to follow-up with her primary clinical law professor [facility] at [facility]. Patient was recommended to keep her appointment with oncologist for bone marrow evaluation.
Discharge Plan
-
Patient Disposition: Home (Routine Discharge)
Discharge Diagnosis/Procedures: Acute on chronic diastolic heart failure constipation
Atrial fibrillation new diagnosis
Thrombocytopenia
Condition: Fair
Diet: 2 Gram Sodium and Restrict fluids to 48 oz
Activity: With assistance and As tolerated
Driving Restrictions: As prior to admission
Blood Work: CBC and CMP in 1 week with primary doctor
Other Services: VN
Specialty Instructions: Weigh Daily- Call MD for wt gain/loss 3 lbs overnight/5 lbs in 1 week
Activity Restrictions/Additional Instructions:
Recommended to follow-up with your primary clinical law professor [facility]CP
Referrals:
Ira Amaya DO [Family Provider] - in less than 1 week
Amanda Carty MD [Consulting Staff] - in two to three weeks
Dinesh Sampson MD [Active] - 12/24/23 (Call to confirm timing. with Dr. Sampson on 01/02/24 in the [facility].)
Prescriptions:
New
methimazole 5 mg Tablet
5 mg PO DAILY 30 Days Qty: 30 0RF
furosemide [Lasix] 40 mg tablet
40 mg PO DAILY Qty: 30 0RF
Continued
multivitamin Tablet
1 tab PO DAILY
losartan 50 mg tablet
50 mg PO BID
carvedilol 25 mg tablet
25 mg PO BID
simvastatin 10 mg tablet
10 mg PO QPM
hydralazine 50 mg tablet
50 mg PO BID
glucosamine-chondroitin [Osteo Bi-Flex] 250-200 mg Tablet
1 tab PO BID
ferrous sulfate
65 mg PO BID
Discontinued
aspirin 81 mg Tablet,Delayed Release (/Ec)
81 mg PO Q48H
Discharge Orders:
Discharge Patient (As Directed); Ordered 11/10/23
Ordered By: Geoffrey Greene
--- NOTE | 2023-11-11 08:34 | CM ---
(late entry for 11/10/23)
CM following re: d/c planning
Chart reviewed
Pt medically stable for d/c
Post d/c recommendation per therapy was for home health however the patient declined
IMM was reviewed and provided by previous CM
No additional d/c needs noted
PLAN; d/c home no needs
== END 2023-11-10 16:08 | disposition home or self-care (01) | DRG 291 ==
LOC: 4 EAST ACU 21:28
PROVIDERS: Clinical Nurse Specialist Family Health; Emergency Medicine; ADMITTING PHYSICIAN Student in an Organized Health Care Education/Training Program; ATTENDING PHYSICIAN Hospitalist; CONSULT PHYSICIAN Internal Medicine Cardiovascular Disease; CONSULT PHYSICIAN Internal Medicine Endocrinology, Diabetes & Metabolism; CONSULT PHYSICIAN Internal Medicine Hematology & Oncology; EMERGENCY PHYSICIAN Emergency Medicine; FAMILY PHYSICIAN Internal Medicine
DX: I11.0 Hypertensive heart disease with heart failure (principal); I50.33 Acute on chronic diastolic (congestive) heart failure; E78.00 Pure hypercholesterolemia, unspecified; M40.209 Unspecified kyphosis, site unspecified; R73.9 Hyperglycemia, unspecified; D69.59 Other secondary thrombocytopenia; D50.9 Iron deficiency anemia, unspecified; E05.90 Thyrotoxicosis, unspecified without thyrotoxic crisis or storm; I48.91 Unspecified atrial fibrillation; R26.2 Difficulty in walking, not elsewhere classified; E16.2 Hypoglycemia, unspecified; I08.1 Rheumatic disorders of both mitral and tricuspid valves; K59.00 Constipation, unspecified; E66.09 Other obesity due to excess calories; Z87.891 Personal history of nicotine dependence; Z79.82 Long term (current) use of aspirin; Z85.3 Personal history of malignant neoplasm of breast; Z96.653 Presence of artificial knee joint, bilateral; Z91.018 Allergy to other foods; Z95.3 Presence of xenogenic heart valve; Z68.35 Body mass index [BMI] 35.0-35.9, adult
CPT/HCPCS: 71046; 80048; 80053; 80061; 82607; 82728; 82746; 82962; 83036; 83540; 83550; 83880; 84439; 84443; 84484; 85025; 85610; 85730; 86803; 87070; 93005; 93306; 97116; 97162; 97166; 99284